=== PATIENT | male | born 1970 | race Caucasian/White ===

== ENCOUNTER 2022-01-14 22:41 | Emergency (ER) | payer OTHER ==
--- OUTSIDE RECORDS SUMMARY | 2022-01-14 22:44 | XMS REPORT | Continuity of Care Document ---
:1970 Author Organization [facility] Address [address] [place] [address] [address] [place] [address] Care Team Providers Name Role Phone BRIGIDO NINA Attending Clinician Unavailable Payers Payer Name Policy Type Policy Number Effective Date Ex[facility] Date [facility] [id number] ALLIANCE - CCN MEDICARE PART A \T\ B [id number] - MEDICARE [employer] - [id number] [employer] Problems This patient has no known problems. Allergies, Adverse Reactions, Alerts This patient has no known allergies or adverse reactions. Medications This patient has no known medications. Procedures Procedure Date / Time Performed Performing Clinician Sourfelice e MD CALORIC VESTIBULAR 2021-08-23 13:26:59 [facility] of TEST W/REC BI BITHERMAL Medicine MD VESTIBULAR EVAL 2021-08-23 13:26:59 [facility] of [employer] FOVL\T\PERPH STIM Medicin e OSCIL TRACKING MD SINUSOIDAL ROTATIONAL 2021-08-23 13:26:59 [facility] TEST Medicine MD SUPPLEMENTAL 2021-08-23 13:26:59 [facility] of ELECTRICAL TEST Medicine Encounters Start End Encounter Admission Attending Care Care Encounter Source Date/Time Date/Time Type Type Clinicians Facility Department ID 2021-08-02 2021-08-02 Outpatient HUSSEIN NINA Bridget [id number] [facility] 10:03:49 14:07:55 BRIGIDO lorenzo of Medicin e Results This patient has no known results.
[2022-01-14] MEDS ORDERED: ONDANSETRON 4 MG/2 ML VIAL ONE (23:33)
[2022-01-14] MEDS ORDERED: HYDROMORPHONE HCL 1 MG/ML INJ ONE (23:33)
[2022-01-14] MEDS ORDERED: NA CHLORIDE 0.9% 1,000 ML ONE (23:33)
[2022-01-15 00:01] LABS: Hematocrit 39.6 % (39.6-49.0); Lymphocytes % 15.3 % (15.3-44.8); MCV 86.8 fL (80-100); MPV 8.5 fL (7.6-11.3); RBC Red Blood Cell Count 4.56 M/uL (4.33-5.43)
[2022-01-15 00:10] LABS: Albumin 3.8 g/dL (3.4-5.0); Bilirubin Total 0.4 mg/dL (0.2-1.0); Potassium 3.8 mmol/L (3.5-5.1); Protein, Total 7.5 g/dL (6.4-8.2)
[2022-01-15 01:15] LABS: Urine Mucus 4+ /HPF (None Seen); Urine RBC >50 /HPF (None Seen); Urine Yeast with Hyphae Trace /HPF (None Seen)
[2022-01-15] MEDS ORDERED: TAMSULOSIN 0.4 MG SR CAP ONE (01:17)
[2022-01-15] MEDS ORDERED: CEFTRIAXONE 1000 MG/VIAL ONE (01:17)
[2022-01-15] MEDS ORDERED: HYDROMORPHONE HCL 1 MG/ML INJ ONE (01:43)
--- NOTE | 2022-01-15 02:01 | EDPHYS ---
Physician Documentation [facility] Name: Alex Henao Age: 51 yrs Sex: Male : 1970 Arrival Date: 01/14/2022 Time: 22:44 Bed 6 Private MD: ED Physician Denis Pabon HPI: 01/14 23:20 This 51 yrs old Male presents to ER via Ambulatory with complaints of Possible Kidney cp Stone. 23:20 The patient complains of pain in the right flank. cp 23:20 The pain radiates to the abdomen. cp 23:20 Onset: The symptoms/episode began/occurred 5 hour(s) ago. cp 23:20 Associated signs and symptoms: Pertinent positives: nausea, vomiting, Pertinent cp negatives: diarrhea, fever, pain radiating to the lower extremities. Severity of pain: in the emergency department the pain is unchanged despite home interventions. The patient has experienced similar episodes in the past, a few times, today's symptoms are similar, to when the patient was apparently diagnosed with kidney stones. Historical: - Allergies: 22:56 No Known Allergies; kb3 - PMHx: 22:56 Crohn's disease; NIDDM; Kidney stone; Colon CA; kb3 - Immunization history:: Adult Immunizations up to date, Client reports receiving the 2nd dose of the Covid vaccine, Last tetanus immunization: up to date. - Social history:: Smoking status: Patient reports the use of cigarette tobacco products, smokes one pack cigarettes per day. ROS: 23:25 Constitutional: Negative for body aches, chills, fever. cp 23:25 Eyes: Negative for injury, pain, redness, and discharge. cp 23:25 ENT: Negative for drainage from ear(s), ear pain, sore throat, difficulty swallowing, difficulty handling secretions. 23:25 Cardiovascular: Negative for chest pain, palpitations. 23:25 Respiratory: Negative for cough, shortness of breath, wheezing. 23:25 Abdomen/GI: Positive for abdominal pain, nausea and vomiting, Negative for diarrhea, constipation, anorexia, black/tarry stool, rectal bleeding. 23:25 Back: Positive for flank pain, on the right. 23:25 : Negative for urinary symptoms. 23:25 Neuro: Negative for altered mental status, dizziness, headache, weakness. 23:25 All other systems are negative. Exam: 23:30 Head/Face: Normocephalic, atraumatic. cp 23:30 Constitutional: The patient appears in no acute distress, alert, awake, non-diaphoretic, non-toxic, well developed, well nourished, in obvious pain, uncomfortable. 23:30 Eyes: Periorbital structures: appear normal, Conjunctiva: normal, no exudate, no injection, Sclera: no appreciated abnormality, Lids and lashes: appear normal, bilaterally. 23:30 ENT: External ear(s): are unremarkable, Nose: is normal, Mouth: Lips: moist, Oral mucosa: moist, Posterior pharynx: Airway: no evidence of obstruction, patent. 23:30 Neck: ROM/movement: is normal, is supple, without pain, no range of motions limitations. 23:30 Chest/axilla: Inspection: normal. 23:30 Cardiovascular: Rate: normal, Rhythm: regular, Edema: is not appreciated, JVD: is not appreciated. 23:30 Respiratory: the patient does not display signs of respiratory distress, Respirations: normal, no use of accessory muscles, no retractions, labored breathing, is not present, Breath sounds: are clear throughout, no decreased breath sounds, no stridor, no wheezing. 23:30 Abdomen/GI: Inspection: abdomen appears normal, Bowel sounds: active, all quadrants, Palpation: soft, in all quadrants, severe abdominal tenderness, in the anterior aspect of right lateral abdomen and posterior aspect of right lateral abdomen, rebound tenderness, is not appreciated. 23:30 Skin: no rash present. 23:30 Neuro: Orientation: to person, place \T\ time. Mentation: is normal, Motor: moves all fours, strength is normal. Vital Signs: 22:55 BP 145 / 107; Pulse 98; Resp 24; Temp 97.1; Pulse Ox 99% ; Weight 90.72 kg; Height 5 kb3 ft. 10 in. (177.80 cm); Pain 8/10; 23:54 BP 127 / 88; Pulse 82; Resp 18 S; Pulse Ox 96% on R/A; as6 01/15 00:38 BP 130 / 88; Pulse 70; Resp 18 S; Pulse Ox 96% on R/A; as6 02:01 BP 120 / 85; Pulse 72; Resp 18 S; Pulse Ox 96% on R/A; as6 11/21 22:55 Body Mass Index 28.70 (90.72 kg, 177.80 cm) kb3 MDM: 01/14 22:59 Patient medically screened. 01/15 00:00 Differential diagnosis: nephrolithiasis, pyelonephritis, UTI, testicular torsion, cp diverticulitis, ruptured AAA, dissecting AAA. 02:00 Data reviewed: vital signs, nurses notes, lab test result(s), radiologic studies, CT cp scan. 02:00 Counseling: I had a detailed discussion with the patient and/or guardian regarding: the cp historical points, exam findings, and any diagnostic results supporting the discharge/admit diagnosis, lab results, radiology results, to return to the emergency department if symptoms worsen or persist or if there are any questions or concerns that arise at home. Response to treatment: the patient's symptoms have markedly improved after treatment, VSS. Pain and nausea markedly improved with meds. Patient appears non-toxic. Will discharge to home for continued monitoring. 01/14 23:13 Order name: CBC with Diff; Complete Time: 00:44 01/15 00:44 Interpretation: Normal except: WBC 13.40; MELBA% 78.0; NEUT A 10.4. 01/14 23:13 Order name: CMP; Complete Time: 00:44 01/15 00:44 Interpretation: Normal except: GLUC 172; CRE 1.50; GFR 55; GLOB 3.7; A/G 1.0. 01/14 23:13 Order name: Lipase; Complete Time: 00:44 01/14 23:13 Order name: Urine Microscopic Only; Complete Time: 01:52 01/15 01:52 Interpretation: Normal except: URBC >50; MUCUS 4+; BYST Occasional; HYST Trace. 01/14 23:21 Order name: CT Stone Protocol 01/14 23:13 Order name: IV Saline Lock; Complete Time: 23:35 01/14 23: Order name: Labs collected and sent; Complete Time: 23:35 01/14 23: Order name: Urine Dipstick-Ancillary (obtain specimen); Complete Time: 00:37 01/15 01:00 Order name: PO challenge; Complete Time: 01:21 cp Administered Medications: 01/14 23:20 CANCELLED (Physician Discretion): morphine 4 mg IVP once over 4 mins cp 23:37 Drug: Zofran (Ondansetron) 4 mg Route: IVP; Site: right antecubital; kd3 01/15 02:11 Follow up: Response: No adverse reaction as6 01/14 23:37 Drug: Dilaudid (HYDROmorphone) 1 mg Route: IVP; Site: right antecubital; as6 01/15 02:11 Follow up: Response: No adverse reaction as6 01/14 23:37 Drug: NS 0.9% 1000 ml Route: IV; Rate: 500 ml/hr; Site: right antecubital; as6 01/15 02:10 Follow up: Response: No adverse reaction; IV Status: Completed infusion; IV Intake: as6 1000ml 01:21 Drug: Flomax (tamsulosin) 0.4 mg Route: PO; kd3 02:10 Follow up: Response: No adverse reaction as6 01:21 Drug: Rocephin (cefTRIAXone) 1 grams Route: IV; Rate: calculated rate; Site: right kd3 antecubital; 02:10 Follow up: Response: No adverse reaction; IV Status: Completed infusion; IV Intake: [id number] 01:45 Drug: Dilaudid (HYDROmorphone) 1 mg Route: IVP; Site: right antecubital; kd3 02:10 Follow up: Response: No adverse reaction as6 Disposition Summary: 01/15/22 02:01 Discharge Ordered Location: Home cp Problem: new cp Symptoms: have improved cp Condition: Stable cp Diagnosis - Calculus of ureter - right cp Followup: cp - With: Gio Streeter MD - When: 2 - 3 days - Reason: Recheck today's complaints, pain continues Discharge Instructions: - Discharge Summary Sheet cp - Kidney Stones cp - Renal Colic cp Forms: - Medication Reconciliation Form cp - Thank You Letter cp - Antibiotic Education cp - Prescription Opioid Use cp Prescriptions: - Flomax 0.4 mg Oral capsule - take 1 capsule by ORAL route once daily As needed 1/2 hour following the same cp meal each day; 5 capsule; Refills: 0, Product Selection Permitted - Zofran 4 mg Oral Tablet - take 1 tablet by ORAL route every 12 hours As needed; 20 tablet; Refills: 0, cp Product Selection Permitted - Cipro 500 mg Oral Tablet - take 1 tablet by ORAL route every 12 hours for 7 days; 14 tablet; Refills: 0, cp Product Selection Permitted - Tylenol-Codeine #3 300 mg-30 mg Oral - take 2 tablet by ORAL route every 6-8 hours; 14 tablet; Refills: 0, Product cp Selection Permitted Signatures: Dispatcher [employer] EDMS Denis Domingo PA PA cp Slawson, Ashby, VICENTE RN as6 Lety Harrison RN RN kd3 Tanya Cai RN RN kb3 Corrections: (The following items were deleted from the chart) 01/14 23:20 23:13 morphine 4 mg IVP once over 4 mins ordered. cp cp 01/16 00:50 01/15 23:30 Constitutional: The patient appears in no acute distress, alert, awake, cp non-diaphoretic, non-toxic, well developed, well nourished, in obvious pain, uncomfortable, cp 01/16 00:50 01/15 23:30 Head/Face: Normocephalic, atraumatic. cp cp 01/17 00:50 01/15 23:30 Eyes: Periorbital structures: appear normal, Conjunctiva: normal, no cp exudate, no injection, Sclera: no appreciated abnormality, Lids and lashes: appear normal, bilaterally, cp 01/16 00:50 01/15 23:30 ENT: External ear(s): are unremarkable, Nose: is normal, Mouth: Lips: cp moist, Oral mucosa: moist, Posterior pharynx: Airway: no evidence of obstruction, patent, cp 01/16 00:50 01/15 23:30 Neck: ROM/movement: is normal, is supple, without pain, no range of motions cp limitations, cp 01/16 00:50 01/15 23:30 Chest/axilla: Inspection: normal, cp cp 01/16 00:50 01/15 23:30 Cardiovascular: Rate: normal, Rhythm: regular, Edema: is not appreciated, cp JVD: is not appreciated, cp 01/16 00:50 01/15 23:30 Respiratory: the patient does not display signs of respiratory distress, cp Respirations: normal, no use of accessory muscles, no retractions, labored breathing, is not present, Breath sounds: are clear throughout, no decreased breath sounds, no stridor, no wheezing, cp 01/16 00:50 01/15 23:30 Abdomen/GI: Inspection: abdomen appears normal, Bowel sounds: active, all cp quadrants, Palpation: soft, in all quadrants, severe abdominal tenderness, in the anterior aspect of right lateral abdomen and posterior aspect of right lateral abdomen, rebound tenderness, is not appreciated, cp 01/16 00:50 01/15 23:30 Skin: no rash present. cp cp 01/16 00:50 01/15 23:30 Neuro: Orientation: to person, place \T\ time. Mentation: is normal, Motor: cp moves all fours, strength is normal, cp
--- NOTE | 2022-01-15 02:01 | ER ---
Nurse's Notes [facility] Name: Alex Henao Age: 51 yrs Sex: Male : 1970 Arrival Date: 01/14/2022 Time: 22:44 Bed 6 Private MD: Diagnosis: Calculus of ureter-right Presentation: 01/14 22:55 Chief complaint: Patient states: Pt reports right flank pain that radiates into right kb3 lower abdomen with associated N/V x5 hrs. Coronavirus screen: Vaccine status: Patient reports receiving the 2nd dose of the covid vaccine. Client denies travel out of the [place] in the last 14 days. Ebola Screen: Patient negative for fever greater than or equal to 101.5 degrees Fahrenheit, and additional compatible Ebola Virus Disease symptoms Patient denies exposure to infectious person. Patient denies travel to an Ebola-affected area in the 21 days before illness onset. Initial Sepsis Screen: Does the patient meet any 2 criteria? No. Patient's initial sepsis screen is negative. Does the patient have a suspected source of infection? No. Patient's initial sepsis screen is negative. Risk Assessment: Do you want to hurt yourself or someone else? Patient reports no desire to harm self or others. Onset of symptoms was January 14, 2022 at 18:00. 22:55 Method Of Arrival: Ambulatory kb3 22:55 Acuity: AAN 3 kb3 Triage Assessment: 22:56 General: Appears distressed, uncomfortable, Behavior is calm, cooperative. Pain: kb3 Complains of pain in right low back Pain radiates to right lower quadrant Pain currently is 8 out of 10 on a pain scale. GI: Reports lower abdominal pain, nausea, vomiting. Historical: - Allergies: 22:56 No Known Allergies; kb3 - PMHx: 22:56 Crohn's disease; NIDDM; Kidney stone; Colon CA; kb3 - Immunization history:: Adult Immunizations up to date, Client reports receiving the 2nd dose of the Covid vaccine, Last tetanus immunization: up to date. - Social history:: Smoking status: Patient reports the use of cigarette tobacco products, smokes one pack cigarettes per day. Screenin:35 Abuse screen: Denies threats or abuse. Denies injuries from another. Nutritional kd3 screening: No deficits noted. Tuberculosis screening: No symptoms or risk factors identified. Fall Risk None identified. Assessment: 23:35 General: Appears uncomfortable, Behavior is calm, cooperative. Neuro: Level of kd3 Consciousness is awake, alert, obeys commands, Oriented to person, place, time, situation. Respiratory: Airway is patent Trachea midline Respiratory effort is even, unlabored, Respiratory pattern is regular, symmetrical. 23:36 GI: Bowel sounds present X 4 quads. Abd is soft X 4 quads. kd3 01/15 00:38 General: pt states pain has improved . as6 Vital Signs: 01/14 22:55 BP 145 / 107; Pulse 98; Resp 24; Temp 97.1; Pulse Ox 99% ; Weight 90.72 kg; Height 5 kb3 ft. 10 in. (177.80 cm); Pain 8/10; 23:54 BP 127 / 88; Pulse 82; Resp 18 S; Pulse Ox 96% on R/A; as6 01/15 00:38 BP 130 / 88; Pulse 70; Resp 18 S; Pulse Ox 96% on R/A; as6 02:01 BP 120 / 85; Pulse 72; Resp 18 S; Pulse Ox 96% on R/A; as6 01/14 22:55 Body Mass Index 28.70 (90.72 kg, 177.80 cm) kb3 ED Course: 01/14 22:44 Patient arrived in ED. jj6 22:48 Denis Domingo PA is PHCP. cp 22:48 Denis Pabon MD is Attending Physician. cp 22:56 Triage completed. kb3 22:56 Arm band placed on right wrist. kb3 22:[address], VICENTE is Primary Nurse. as6 23:35 Patient has correct armband on for positive identification. kd3 23:35 CBC with Diff Sent. kd3 23:35 CMP Sent. kd3 23:35 Lipase Sent. kd3 23:35 Inserted saline lock: 18 gauge in right antecubital area, using aseptic technique. kd3 Blood collected. 01/15 00:25 CT Stone Protocol In Process Unspecified. EDMS 02:00 Gio Streeter MD is Referral Physician. cp 02:11 No provider procedures requiring assistance completed. IV discontinued, intact, as6 bleeding controlled, No redness/swelling at site. Pressure dressing applied. Administered Medications: 01/14 23:20 CANCELLED (Physician Discretion): morphine 4 mg IVP once over 4 mins cp 23:37 Drug: Zofran (Ondansetron) 4 mg Route: IVP; Site: right antecubital; kd3 01/15 02:11 Follow up: Response: No adverse reaction as6 01/14 23:37 Drug: Dilaudid (HYDROmorphone) 1 mg Route: IVP; Site: right antecubital; as6 01/15 02:11 Follow up: Response: No adverse reaction as6 01/14 23:37 Drug: NS 0.9% 1000 ml Route: IV; Rate: 500 ml/hr; Site: right antecubital; as6 01/15 02:10 Follow up: Response: No adverse reaction; IV Status: Completed infusion; IV Intake: as6 1000ml 01:21 Drug: Flomax (tamsulosin) 0.4 mg Route: PO; kd3 02:10 Follow up: Response: No adverse reaction as6 01:21 Drug: Rocephin (cefTRIAXone) 1 grams Route: IV; Rate: calculated rate; Site: right kd3 antecubital; 02:10 Follow up: Response: No adverse reaction; IV Status: Completed infusion; IV Intake: [id number] 01:45 Drug: Dilaudid (HYDROmorphone) 1 mg Route: IVP; Site: right antecubital; kd3 02:10 Follow up: Response: No adverse reaction as6 Medication: 01/14 23:36 VIS not applicable for this client. kd3 Intake: 01/15 02:10 IV: 50ml; Total: 50ml. as6 02:10 IV: 1000ml; Total: 1050ml. as6 Outcome: 02:01 Discharge ordered by MD. cp 02:11 Discharged to home ambulatory. as6 02:11 Condition: stable 02:11 Discharge instructions given to patient, Instructed on discharge instructions, follow up and referral plans. medication usage, Demonstrated understanding of instructions, follow-up care, medications, Prescriptions given X 4. 02:11 Patient left the ED. as6 Signatures: Dispatcher [employer] EDMS Denis Domingo PA PA cp Jeffries, Jennifer jj6 Nura Street RN RN as6 Lety Harrison RN RN kd3 Ayala, Tanya, RN RN kb3
[2022-01-15 02:19] VITALS: TEMP 97.1
[2022-01-15 02:21] VITALS: O2SAT 96
[2022-01-15 02:23] VITALS: BP 120/85
--- NOTE | 2022-01-15 14:39 | RAD REPORT ---
EXAM DESCRIPTION: CT - Stone Protocol - 01/15/2022 6:38 am CLINICAL HISTORY: The patient is 51 years old and is Male; right flank pain TECHNIQUE: Axial computed tomography images of the abdomen and pelvis without intravenous contrast. Sagittal and coronal reformatted images were created and reviewed. This CT exam was performed usi ng one or more of the following dose reduction techniques: automated exposure control, adjustment o f the mA and/or kV according to patient size, and/or use of iterative reconstruction technique. COMPARISON: No relevant prior studies available. FINDINGS: LUNG BASES: Unremarkable. No mass. No consolidation. ABDOMEN: LIVER: Unremarkable. GALLBLADDER AND BILE DUCTS: Unremarkable. No calcified stones. No ductal dilation. PANCREAS: Unremarkable. No ductal dilation. SPLEEN: Unremarkable. No splenomegaly. ADRENALS: Unremarkable. No mass. KIDNEYS AND URETERS: 3 mm obstructive stone within the mid right ureter (at the approximate mid L5 vertebral level), with associated mild to moderate proximal obstructive features. Tiny left-sided nonobstructive intrarenal stone with no additional obstructive intrarenal or intraureteral stones. STOMACH AND BOWEL: Partial colectomy with colonic anastomosis noted in the right of midline anterior pelvis. Additional surgical clips noted in the right midline central mesentery and upper and left lat eral abdomen. No obstruction. PELVIS: APPENDIX: See above. BLADDER: Unremarkable. No stones. REPRODUCTIVE: Unremarkable as visualized. ABDOMEN and PELVIS: INTRAPERITONEAL SPACE: Unremarkable. No free air. No significant fluid collection. BONES/JOINTS: See above. SOFT TISSUES: Unremarkable. VASCULATURE: Moderate calcified atherosclerosis of the abdominal aorta without abdominal aortic aneur ysm. LYMPH NODES: Unremarkable. No enlarged lymph nodes. IMPRESSION: 1. 3 mm obstructive stone within the mid right ureter (at the approximate mid L5 verte bral level), with associated mild to moderate proximal obstructive features. 2. Tiny left-sided nonobstructive intrarenal stone with no additional obstructive intrarenal or int raureteral stones. 3. Partial colectomy with colonic anastomosis noted in the right of midline anterior pelvis and addit ional postsurgical changes with no evidence of bowel obstruction. Electronically signed by: Ihsan Gutierrez MD 01/15/2022 12:52 AM DRIVER TRAINEE Due to temporary technical issues with the PACS/Fluency reporting system, reports are being signed by the in house radiologists without review as a courtesy to insure prompt reporting. The interpreting radiologist is fully responsible for the content of the report.
== END 2022-01-15 02:11 | disposition home or self-care (01) ==
LOC: ER 22:41
DX: N20.1 Calculus of ureter (principal); Z87.442 Personal history of urinary calculi; F17.210 Nicotine dependence, cigarettes, uncomplicated
CPT/HCPCS: 85025; 36415; 81015; 83690; 80053; 76377; 74176; J1170 ×2; J7030; J2405

== ENCOUNTER 2024-04-02 13:07 | Emergency (ER) | payer OTHER ==
[2024-04-02 13:52] LABS: Absolute Basophils 0.1 K/uL (0-0.5); Absolute Eosinophils 0.3 K/uL (0-0.5); Absolute Lymphocytes (CBC) 3.1 K/uL (0.7-4.9); Absolute Monocytes 0.8 K/uL (0.1-1.3); Absolute Neutrophil 10.3 K/uL (1.8-8.0); Basophils % 0.3 % (0-1.3); Eosinophils % 2.3 % (0-4.4); Hematocrit 42.3 % (39.6-49.0); Lymphocytes % 21.3 % (15.3-44.8); MCH 30.7 pg (27.0-35.0); MCHC 35.5 g/dL (32.0-36.0); MCV 86.6 fL (80-100); MPV 9.6 fL (7.6-11.3); Monocytes % 5.2 % (3.3-12.3); Neutrophils % 70.9 % (41.7-73.7); Platelets 188 thou/uL (152-406); RBC Red Blood Cell Count 4.89 M/uL (4.33-5.43); Red Cell Distribution Width 11.7 % (12.1-15.2)
[2024-04-02 13:55] LABS: Specific Gravity > 1.030 (1.005-1.030); Sqamous Epithelial None Seen /HPF (None Seen); Urine Bacteria None Seen /HPF (<20); Urine Bilirubin NEGATIVE (Negative); Urine Blood Negative (Negative); Urine Clarity Clear (Clear); Urine Color Light-Yellow (Yellow); Urine Culture Reflex Order NOT NEEDED; Urine Glucose 4+ (Over) (Negative); Urine Ketones NEGATIVE (Negative); Urine Micro Reflex YN NO BILL MICROSCOPIC; Urine Mucus Slight /HPF (None Seen); Urine Nitrite NEGATIVE (Negative); Urine Protein NEGATIVE (Negative); Urine RBC <5 /HPF (None Seen); Urine Urobilinogen Normal (Normal); Urine WBC <5 /HPF (<5)
[2024-04-02 13:56] LABS: PT Prothrombin Time 11.9 SECONDS (9.4-12.5); Protime INR 1.13
[2024-04-02 14:10] LABS: ALT/SGPT 34 U/L (16-61); AST/SGOT 17 U/L (15-37); Albumin 3.7 g/dL (3.4-5.0); Albumin/Globulin Ratio 0.9 (1.1-1.8); Alkaline Phosphatase 113 U/L (45-117); Anion Gap 11.8 mEq/L (5.0-15.0); BETA HYDROXYBUTYRATE 0.28 mmol/L (0.02-0.27); BUN Blood Urea Nitrogen 12 mg/dL (7-18); Bicarbonate 22 mEq/L (21-32); Bilirubin Direct 0.2 mg/dL (0-0.2); Bilirubin Indirect, Calculated 0.4 mg/dL (0.2-0.8); Bilirubin Total 0.6 mg/dL (0.2-1.0); Glomerular Filtration Rate 71 ml/min (=/>90); Magnesium 1.9 mg/dL (1.6-2.4); NT PRO-BNP 45 pg/mL (<125); Potassium 3.8 mEq/L (3.5-5.1); Protein, Total 7.7 g/dL (6.4-8.2); Sodium Level 131 mEq/L (136-145); Troponin High Sensitivity < 3.0 pg/mL (<58.9)
[2024-04-02 14:11] LABS: Glucose Level 455 mg/dL (74-106)
--- NOTE | 2024-04-02 15:03 | RAD REPORT ---
Procedure: Chest Single View HISTORY: Cough COMPARISON: 2023 FINDINGS: The lungs appear clear of acute infiltrate. No significant pleural effusion noted. The heart is normal size. IMPRESSION: No acute abnormality is displayed.
[2024-04-02] MEDS ORDERED: NA CHLORIDE 0.9% 1,000 ML ONE ×2 (15:13→17:21)
[2024-04-02] MEDS ORDERED: INSULIN REGULAR (HUMAN) 100 UNIT/ML ONE ×2 (15:13→17:21)
--- NOTE | 2024-04-02 19:16 | EDPHYS ---
Physician Documentation [facility] Name: Alex Henao Age: 53 yrs Sex: Male : 1970 Arrival Date: 04/02/2024 Time: 13:07 Bed 13 Private MD: ED Physician Denis Pabon HPI: 04/02 13:20 This 53 yrs old Male presents to ER via Ambulatory with complaints of High Blood Sugar. cp 13:20 The patient or guardian reports hyperglycemia, that was potentially precipitated by no cp particular event. Onset: The symptoms/episode began/occurred at an unknown time. 13:20 Associated signs and symptoms: Pertinent positives: shortness of breath. Patient cp reports having recent blood work that showed blood glucose level above 500. Informed today to go to ED for evaluation. Historical: - Allergies: 13:17 No Known Allergies; cm10 - Home Meds: 13:17 Dialyvite oral [Active]; esomeprazole magnesium 40 mg oral capsule,delayed release cm10 (e.c.) 1 cap daily [Active]; metformin 500 mg oral tablet 1 tab daily [Active]; Fish Oil 1,000 (120-180) mg oral capsule 1 cap daily [Active]; gabapentin 100 mg oral tablet [Active]; lisinopril 2.5 mg Oral tablet [Active]; atorvastatin 40 mg oral tablet [Active]; - PMHx: 13:17 COLON CA; Crohn's Disease; Kidney stone; NIDDM; cm10 - PSHx: 13:17 Colon resection x 3; cm10 - Immunization history:: Adult Immunizations up to date. - Infectious Disease History:: Denies. - Social history:: Smoking status: Patient reports the use of cigarette tobacco products, smokes one pack cigarettes per day. ROS: 13:25 Constitutional: Negative for body aches, chills, fever, poor PO intake, cp 13:25 Eyes: Negative for injury, pain, redness, and discharge, cp 13:25 ENT: Negative for drainage from ear(s), ear pain, sore throat, difficulty swallowing, difficulty handling secretions, 13:25 Cardiovascular: Negative for chest pain, edema, palpitations, 13:25 Respiratory: Positive for shortness of breath, Negative for cough, wheezing, 13:25 Abdomen/GI: Negative for abdominal pain, vomiting, diarrhea, constipation, 13:25 : Negative for urinary symptoms, 13:25 Neuro: Negative for altered mental status, dizziness, headache, numbness, weakness, 13:25 All other systems are negative, Exam: 13:30 Constitutional: The patient appears in no acute distress, alert, awake, cp non-diaphoretic, non-toxic, well developed, well nourished, 13:30 Head/Face: Normocephalic, atraumatic. cp 13:30 Eyes: Periorbital structures: appear normal, Conjunctiva: normal, no exudate, no injection, Sclera: no appreciated abnormality, Lids and lashes: appear normal, bilaterally, 13:30 ENT: External ear(s): are unremarkable, Nose: is normal, Mouth: Lips: moist, Oral mucosa: moist, Posterior pharynx: Airway: no evidence of obstruction, patent, erythema, is not appreciated, exudate, is not appreciated, 13:30 Neck: ROM/movement: is normal, is supple, without pain, no range of motions limitations, 13:30 Chest/axilla: Inspection: normal, 13:30 Cardiovascular: Rate: tachycardic, Rhythm: regular, Edema: is not appreciated, JVD: is not appreciated, 13:30 Respiratory: the patient does not display signs of respiratory distress, Respirations: normal, no use of accessory muscles, no retractions, labored breathing, is not present, Breath sounds: are clear throughout, no decreased breath sounds, no stridor, no wheezing, 13:30 Abdomen/GI: Inspection: abdomen appears normal, Palpation: abdomen is soft and non-tender, in all quadrants, 13:30 Back: pain, is absent, ROM is normal, 13:30 Skin: cellulitis, is not appreciated, no rash present. 13:30 Neuro: Orientation: to person, place \T\ time. Mentation: is normal, Motor: moves all fours, strength is normal, Sensation: is normal, 15:10 ECG was reviewed by the Attending Physician. cp Vital Signs: 13:14 BP 126 / 75; Pulse 108; Resp 18; Temp 97.8(O); Pulse Ox 100% on R/A; Weight 74.8 kg; cm10 Height 5 ft. 9 in. ; Pain 0/10; 16:41 BP 122 / 74; Pulse 79; Resp 16 S; Pulse Ox 100% on R/A; kc6 17:29 BP 106 / 70; Pulse 71; Resp 16 S; Pulse Ox 99% on R/A; kc6 19:37 BP 118 / 78; Pulse 76; Resp 16; Temp 98.1; Pulse Ox 99% on R/A; dd2 13:14 Body Mass Index 24.35 (74.80 kg, 175.26 cm) cm10 13:14 Pain Scale: Adult cm10 MDM: 13:23 Medical Screening Exam initiated soraya 19:15 Data reviewed: vital signs, nurses notes, lab test result(s), EKG, radiologic studies, cp plain films, and as a result, I will discharge patient. 19:15 Differential diagnosis: diabetes insipidus, DKA, sepsis, kidney failure, chf, acute ME. cp I considered the following discharge prescriptions or medication management in the emergency department Medications were administered in the Emergency Department. See MAR. Care significantly affected by the following chronic conditions: Diabetes. Counseling: I had a detailed discussion with the patient and/or guardian regarding the historical points, exam findings, and any diagnostic results supporting the discharge/admit diagnosis, lab results, radiology results, the need for outpatient follow up, a family practitioner, to return to the emergency department if symptoms worsen or persist or if there are any questions or concerns that arise at home. Response to treatment: the patient's symptoms have markedly improved after treatment, and as a result, I will discharge patient. 04/02 13:18 Order name: Basic Metabolic Panel; Complete Time: 14:34 cp 04/02 14:54 Interpretation: Normal except: NA 131; GLUC 455; GFR 71. cp 04/02 13:18 Order name: CBC with Diff; Complete Time: 14:34 cp 04/02 14:54 Interpretation: Normal except: WBC 14.60; RDW 11.7; NEUT A 10.3. cp 04/02 13:18 Order name: LFT's; Complete Time: 14:34 cp 04/02 13:18 Order name: Magnesium; Complete Time: 14:34 cp 04/02 13:18 Order name: NT PRO-BNP; Complete Time: 14:34 cp 04/02 13:18 Order name: PT-INR; Complete Time: 14:34 cp 04/02 13:18 Order name: Troponin HS; Complete Time: 14:34 cp 04/02 13:18 Order name: BETA HYDROXYBUTYRATE; Complete Time: 14:34 cp 04/02 13:18 Order name: Urinalysis W/Microscopic; Complete Time: 14:34 cp 04/02 13:20 Order name: Hemoglobin A1c cp 04/02 13:24 Order name: Glucose, Ancillary Testing; Complete Time: 14:34 EDMS 04/02 16:34 Order name: Glucose, Ancillary Testing; Complete Time: 16:57 EDMS 04/02 16:57 Interpretation: Abnormal: GLUC,ANCIL 315. cp 04/02 16:54 Order name: Hemoglobin A1c; Complete Time: 18:06 EDMS 04/02 18:06 Interpretation: Abnormal: HA1C 11.5. cp 04/02 18:39 Order name: Glucose, Ancillary Testing; Complete Time: 18:41 EDMS 04/02 18:41 Interpretation: Reviewed. cp 04/02 13:18 Order name: XRAY Chest (1 view); Complete Time: 15:06 cp 04/02 15:07 Interpretation: Report review. cp 04/02 13:10 Order name: Accucheck Blood Glucose; Complete Time: 13:34 cp 04/02 13:18 Order name: Cardiac monitoring; Complete Time: 15:10 cp 04/02 13:18 Order name: EKG - Nurse/Tech; Complete Time: 15:10 cp 04/02 13:18 Order name: IV Saline Lock; Complete Time: 13:41 cp 04/02 13:18 Order name: Labs collected and sent; Complete Time: 13:41 cp 04/02 13:18 Order name: O2 Per Protocol; Complete Time: 14:59 cp 04/02 13:18 Order name: O2 Sat Monitoring; Complete Time: 14:59 cp 04/02 16:10 Order name: Accucheck Blood Glucose; Complete Time: 16:23 cp 04/02 18:12 Order name: Accucheck Blood Glucose; Complete Time: 18:37 cp EC:10 Rate is 72 beats/min. Rhythm is regular. SD interval is normal. QRS interval is normal. cp QT interval is normal. T waves are Inverted in leads aVR, V3. Interpreted by me. Reviewed by me. Administered Medications: 15:29 Drug: NS 0.9% IV 1000 ml IV at 1000 ml once; to be given as a bolus over 60 minutes kc6 Route: IV; Rate: 1000 ml; Site: right antecubital; 16:25 Follow up: Response: No adverse reaction; IV Status: Completed infusion; IV Intake: kc6 1000ml 15:32 Drug: Insulin Regular Human Sub-Q 7 units Sub-Q once; if blood glucose >350 kc6 {Co-Signature: melisa (Angela Charles RN).} Route: Sub-Q; Site: abdomen; 16:25 Follow up: Response: No adverse reaction; Blood sugar is lowered kc6 17:25 Drug: NS 0.9% IV 1000 ml IV at 1000 ml once; to be given as a bolus over 60 minutes kc6 Route: IV; Rate: 1000 ml; Site: right antecubital; 18:37 Follow up: Response: No adverse reaction; IV Status: Completed infusion; IV Intake: kc6 1000ml 17:25 Drug: Insulin Regular Human Sub-Q 10 units Sub-Q once {Co-Signature: corey Palacio RN).} Route: Sub-Q; Site: abdomen; 18:37 Follow up: Response: No adverse reaction; Blood sugar is lowered kc6 Point of Care Testing: Blood Glucose: 13:12 Blood Glucose: 406 mg/dL; cm10 Ranges: Critical Glucose Levels:Adult <50 mg/dl or >400 mg/dl <40 mg/dl or >180 mg/dl Disposition Summary: 04/02/24 19:15 Discharge Ordered Notes: Location: Home cp Problem: new cp Symptoms: have improved cp Condition: Stable cp Diagnosis - Diabetes mellitus due to underlying condition with hyperglycemia cp Followup: cp - With: Private Physician - When: 2 - 3 days - Reason: Recheck today's complaints Discharge Instructions: - Discharge Summary Sheet cp - Type 2 Diabetes Mellitus, Diagnosis, Adult cp - Hyperglycemia cp - Daily Diabetes Mellitus Record cp - Blood Glucose Monitoring, Adult cp - Diabetes Mellitus and Nutrition, Adult cp Forms: - Medication Reconciliation Form cp - Antibiotic Education cp - Prescription Opioid Use cp - Patient Portal Instructions cp - Leadership Thank You Letter cp Addendum: 04/03/2024 22:07 Co-signature as Attending Physician, Denis Pabon MD I agree with the assessment and c ace plan of care. Signatures: Dispatcher [employer] Denis Muller MD MD cha Page, Corey, PA PA cp Charlotte Kahn RN RN Alisha Zamarripa, RN RN cm10 Araceli, Angela RN me1 Corrections: (The following items were deleted from the chart) 04/02 15:45 15:45 Accucheck Blood Glucose ordered. cp cp
--- NOTE | 2024-04-02 19:16 | ER ---
Nurse's Notes [facility] Name: Alex Henao Age: 53 yrs Sex: Male : 1970 Arrival Date: 04/02/2024 Time: 13:07 Bed 13 Private MD: Diagnosis: Diabetes mellitus due to underlying condition with hyperglycemia Presentation: 04/02 13:14 Chief complaint: Patient states: Had labs drawn yesterday and was told to come to the cm10 ER this morning due to his blood sugar being 550. Pt states that he has been having cotton mouth and shortness of breath. Pt takes metformin for diabetes. Coronavirus screen: Client denies travel out of the [place] in the last 14 days. Ebola Screen: Patient denies travel to an Ebola-affected area in the 21 days before illness onset. Initial Sepsis Screen: Does the patient meet any 2 criteria? HR > 90 bpm. No. Patient's initial sepsis screen is negative. Does the patient have a suspected source of infection? No. Patient's initial sepsis screen is negative. Risk Assessment: Do you want to hurt yourself or someone else? Patient reports no desire to harm self or others. Onset of symptoms was April 02, 2024. 13:14 Method Of Arrival: Ambulatory 10 13:14 Acuity: ANA 3 cm10 Triage Assessment: 13:21 General: Appears in no apparent distress. comfortable, Behavior is calm, cooperative. cm10 Pain: Denies pain. Neuro: No deficits noted. Level of Consciousness is awake, alert, obeys commands, Oriented to person, place, time, situation, Appropriate for age. Respiratory: No deficits noted. Airway is patent Respiratory effort is even, unlabored, Respiratory pattern is regular, symmetrical. Historical: - Allergies: 13:17 No Known Allergies; cm10 - Home Meds: 13:17 Dialyvite oral [Active]; esomeprazole magnesium 40 mg oral capsule,delayed release cm10 (e.c.) 1 cap daily [Active]; metformin 500 mg oral tablet 1 tab daily [Active]; Fish Oil 1,000 (120-180) mg oral capsule 1 cap daily [Active]; gabapentin 100 mg oral tablet [Active]; lisinopril 2.5 mg Oral tablet [Active]; atorvastatin 40 mg oral tablet [Active]; - PMHx: 13:17 COLON CA; Crohn's Disease; Kidney stone; NIDDM; cm10 - PSHx: 13:17 Colon resection x 3; cm10 - Immunization history:: Adult Immunizations up to date. - Infectious Disease History:: Denies. - Social history:: Smoking status: Patient reports the use of cigarette tobacco products, smokes one pack cigarettes per day. Screenin:21 [facility] ED Fall Risk Assessment (Adult) History of falling in the last 3 months, kc6 including since admission No falls in past 3 months (0 pts) Confusion or Disorientation No (0 pts) Intoxicated or Sedated No (0 pts) Impaired Gait No (0 pts) Mobility Assist Device Used No (0 pt) Altered Elimination No (0 pt) Score/Fall Risk Level 0 - 2 = Low Risk Oriented to surroundings, Maintained a safe environment, Educated pt \T\ family on fall prevention, incl call for assistance when getting out of bed. Abuse screen: Denies threats or abuse. Denies injuries from another. Nutritional screening: No deficits noted. Tuberculosis screening: No symptoms or risk factors identified. Assessment: 16:28 General: Appears in no apparent distress. comfortable, well groomed, well developed, kc6 Behavior is calm, cooperative, appropriate for age. Pain: Denies pain. Neuro: Level of Consciousness is awake, alert, obeys commands, Oriented to person, place, time, situation, Appropriate for age. Cardiovascular: Capillary refill < 3 seconds. Respiratory: Airway is patent Trachea midline Respiratory effort is even, unlabored, Respiratory pattern is regular, symmetrical. GI: No signs and/or symptoms were reported involving the gastrointestinal system. : No signs and/or symptoms were reported regarding the genitourinary system. EENT: No signs and/or symptoms were reported regarding the EENT system. Derm: No signs and/or symptoms reported regarding the dermatologic system. Skin is intact, is healthy with good turgor, Skin is pink, warm \T\ dry. Musculoskeletal: No signs and/or symptoms reported regarding the musculoskeletal system. Circulation, motion, and sensation intact. Range of motion: intact in all extremities. 17:29 Reassessment: Patient appears in no apparent distress at this time. No changes from kc6 previously documented assessment. Patient and/or family updated on plan of care and expected duration. Pain level reassessed. Patient is alert, oriented x 3, equal unlabored respirations, skin warm/dry/pink. 18:29 Reassessment: Patient appears in no apparent distress at this time. No changes from kc6 previously documented assessment. Patient and/or family updated on plan of care and expected duration. Pain level reassessed. Patient is alert, oriented x 3, equal unlabored respirations, skin warm/dry/pink. Vital Signs: 13:14 BP 126 / 75; Pulse 108; Resp 18; Temp 97.8(O); Pulse Ox 100% on R/A; Weight 74.8 kg; cm10 Height 5 ft. 9 in. ; Pain 0/10; 16:41 BP 122 / 74; Pulse 79; Resp 16 S; Pulse Ox 100% on R/A; kc6 17:29 BP 106 / 70; Pulse 71; Resp 16 S; Pulse Ox 99% on R/A; kc6 19:37 BP 118 / 78; Pulse 76; Resp 16; Temp 98.1; Pulse Ox 99% on R/A; dd2 13:14 Body Mass Index 24.35 (74.80 kg, 175.26 cm) cm10 13:14 Pain Scale: Adult cm10 ED Course: 13:09 Patient arrived in ED. mr 13:09 [facility]. cp 13:09 Denis Pabon MD is Attending Physician. cp 13:17 Triage completed. cm10 13:21 Arm band placed on right wrist. Patient placed in an exam room, on a stretcher. cm10 13:21 Patient has correct armband on for positive identification. Bed in low position. Call kc6 light in reach. Side rails up X 1. Adult w/ patient. Pulse ox on. NIBP on. Door closed. Noise minimized. Lights dimmed. Warm blanket given. Pillow given. 13:41 Urinalysis W/Microscopic Sent. cm10 13:41 BETA HYDROXYBUTYRATE Sent. cm10 13:41 Basic Metabolic Panel Sent. cm10 13:41 CBC with Diff Sent. cm10 13:41 LFT's Sent. cm10 13:41 Magnesium Sent. cm10 13:41 NT PRO-BNP Sent. cm10 13:41 PT-INR Sent. cm10 13:41 Troponin HS Sent. cm10 13:42 Initial lab(s) drawn, by me, sent to lab. Urine collected: clean catch specimen. cm10 Inserted saline lock: 20 gauge in right antecubital area, using aseptic technique. Blood collected. Flushed with 10 mL NS. 14:37 XRAY Chest (1 view) In Process Unspecified. EDMS 14:58 Charlotte Kahn, RN is Primary Nurse. kc6 19:08 Report given to Mila Rock RN. kc6 19:10 Hemoglobin A1c Sent. dd2 19:36 No provider procedures requiring assistance completed. IV discontinued, intact, dd2 bleeding controlled, No redness/swelling at site. Pressure dressing applied. 19:37 Provided Education on: D/C EDUCATION. dd2 Administered Medications: 15:29 Drug: NS 0.9% IV 1000 ml IV at 1000 ml once; to be given as a bolus over 60 minutes kc6 Route: IV; Rate: 1000 ml; Site: right antecubital; 16:25 Follow up: Response: No adverse reaction; IV Status: Completed infusion; IV Intake: kc6 1000ml 15:32 Drug: Insulin Regular Human Sub-Q 7 units Sub-Q once; if blood glucose >350 kc6 {Co-Signature: me1 (Angela Charles RN).} Route: Sub-Q; Site: abdomen; 16:25 Follow up: Response: No adverse reaction; Blood sugar is lowered kc6 17:25 Drug: NS 0.9% IV 1000 ml IV at 1000 ml once; to be given as a bolus over 60 minutes kc6 Route: IV; Rate: 1000 ml; Site: right antecubital; 18:37 Follow up: Response: No adverse reaction; IV Status: Completed infusion; IV Intake: kc6 1000ml 17:25 Drug: Insulin Regular Human Sub-Q 10 units Sub-Q once {Co-Signature: 1 (corey Charles RN).} Route: Sub-Q; Site: abdomen; 18:37 Follow up: Response: No adverse reaction; Blood sugar is lowered kc6 Medication: 19:37 VIS not applicable for this client. dd2 Point of Care Testing: Blood Glucose: 13:12 Blood Glucose: 406 mg/dL; cm10 Ranges: Intake: 16:25 IV: 1000ml; Total: 1000ml. kc6 18:37 IV: 1000ml; Total: 2000ml. kc6 Outcome: 19:15 Discharge ordered by . cp 19:36 Discharged to home ambulatory, dd2 19:36 Condition: stable 19:36 Discharge instructions given to patient, significant other, Instructed on discharge instructions, follow up and referral plans. medication usage, Demonstrated understanding of instructions, follow-up care, medications, 19:38 Patient left the ED. dd2 Signatures: Dispatcher [employer] EDMS Joselyn Silverman, Reg Reg mr Denis Domingo, Charlotte Nichole cp, RN RN kc6 Alisha Aparicio RN RN cm10 MILA ROCK RN RN dd2 Angela Charles RN me1
[2024-04-02 20:03] VITALS: O2SAT 99
[2024-04-02 20:04] VITALS: BP 118/78; TEMP 98.1
== END 2024-04-02 19:38 | disposition home or self-care (01) ==
LOC: ER 13:07
DX: E11.65 Type 2 diabetes mellitus with hyperglycemia (principal); F17.210 Nicotine dependence, cigarettes, uncomplicated
CPT/HCPCS: 96361; 85025; 81001; 80048; 36415; 83735; 85610; 82947 ×3; 80076; 83036; 84484; 82010; 83880; 71045; 96360; 96372; 99284; J7030 ×2; 93005